=== PATIENT | female | born 1965 | race Two or more races ===

== ENCOUNTER 2016-05-14 07:30 | Emergency (ER) | payer MEDICAID ==
[~2016-05-14] VITALS: Ht 152.4 cm; Wt 81.6 kg
[2016-05-14] MEDS ORDERED: IBUPROFEN 600 MG TABLET PO ONE ×2 (08:00)
[2016-05-14 09:51] VITALS: BP 151/71
== END 2016-05-14 09:51 | disposition home or self-care (01) ==
LOC: ER 07:33
DX: S40.022A Contusion of left upper arm, initial encounter (principal); I10 Essential (primary) hypertension; R10.9 Unspecified abdominal pain; Z88.5 Allergy status to narcotic agent; Z88.6 Allergy status to analgesic agent; V49.40XA Driver injured in collision with unspecified motor vehicles in traffic accident, initial encounter; Y93.89 Activity, other specified; Y92.89 Other specified places as the place of occurrence of the external cause; Y99.9 Unspecified external cause status
CPT/HCPCS: 71010; 72050; 73060; 99284; A4606; Z7610